=== PATIENT | female | born 1965 | race Caucasian/White ===

== ENCOUNTER 2018-07-13 11:43 | Day surgery (SDC) | payer MEDICAID ==
[2018-07-13] MEDS ORDERED: LIDOCAINE 2% MDV (20MG/ML) 20ML VIAL IV ONE (11:44)
[2018-07-13] MEDS ORDERED: MIDAZOLAM HCL 2MG/2ML VIAL IV ONE (11:44)
[2018-07-13] MEDS ORDERED: PROPOFOL 10 MG/ML VIAL IV ONE (11:44)
== END 2018-07-13 13:37 | disposition home or self-care (01) ==
LOC: HOP 11:43
PROVIDERS: ATTEND Internal Medicine Gastroenterology
DX: K52.9 Noninfective gastroenteritis and colitis, unspecified (principal); R63.4 Abnormal weight loss; K62.1 Rectal polyp; D17.79 Benign lipomatous neoplasm of other sites; I10 Essential (primary) hypertension; K21.9 Gastro-esophageal reflux disease without esophagitis

== ENCOUNTER 2019-07-27 20:29 | Emergency (ER) | payer MEDICAID ==
[2019-07-27] MEDS ORDERED: DIPHENHYDRAMINE HCL 25 MG CAPSULE PO ONE (20:50)
[2019-07-27] MEDS ORDERED: METHYLPREDNISOLONE PF 125MG/VIAL IM ONE (20:50)
--- NOTE | 2019-07-27 20:50 | Emergency Department Record ---
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 She has had a rash on her forearms on and off now for several weeks. She states the rash becomes itchy at night when she tries to go to sleep. She is UTD on her tetanus. She states she has hep C but it's "not active." She also has hypertension and is on norco 10 for chronic back pain. Patient denies shortness of breath, wheezing, dysphagia or swelling in her throat. She states she has an appointment with her PCP in about 2 weeks, but decided to get seen this weekend. Onset/Timin -: Month(s) Patient Tetanus UTD (within 5 yrs): Yes Location: Face, LUE, RUE Associated symptoms: Denies other symptoms Treatments Prior to Arrival: None - Related Data Previous Rx's Medication Instructions Recorded Prednisone [Prednisone 20Mg] 20 mg PO DAILY #20 tab 07/27/19 Allergies Allergy/AdvReac Type Severity Reaction Status Date / Time No Known Drug Allergies Allergy Verified 07/27/19 20:38 Travel Screening - Travel/Exposure Within Last 30 Days Have you traveled within the last 30 days?: No - Travel/Exposure Within Last Year Have you traveled outside the [place] in the last year?: No - Additonal Travel Details Have you been exposed to anyone with a communicable illness?: No - Travel Symptoms Symptom Screening: None Review of Systems Reviewed: No additional complaints except as noted below Constitutional: Reports: As per HPI. Denies: Chills, Fever, Malaise, Night sweats, Weakness, Weight change Eyes: Reports: As per HPI. Denies: Eye discharge, Eye pain, Photophobia, Vision change ENT: Reports: As per HPI. Denies: Congestion, Dental pain, Ear pain, Epistaxis, Hearing loss, Throat pain Respiratory: Reports: As per HPI. Denies: Cough, Dyspnea, Hemoptysis, Stridor, Wheezes Cardiovascular: Reports: As per HPI. Denies: Arrhythmia, Chest pain, Dyspnea on exertion, Edema, Murmurs, Orthopnea, Palpitations, Paroxysmal nocturnal dyspnea, Rheumatic Fever, Syncope Endocrine: Reports: As per HPI. Denies: Fatigue, Heat or cold intolerance, Polydipsia, Polyuria Gastrointestinal: Reports: As per HPI. Denies: Abdominal pain, Constipation, Diarrhea, Hematemesis, Hematochezia, Melena, Nausea, Vomiting Genitourinary: Reports: As per HPI. Denies: Abnormal menses, Discharge, Dyspareunia, Dysuria, Frequency, Hematuria, Incontinence, Retention, Urgency Musculoskeletal: Reports: As per HPI. Denies: Arthralgia, Back pain, Gout, Joint swelling, Myalgia, Neck pain Skin: Reports: As per HPI. Denies: Bruising, Change in color, Change in hair/nails, Lesions, Pruritus, Rash Neurological: Reports: As per HPI. Denies: Abnormal gait, Confusion, Headache, Numbness, Paresthesias, Seizure, Tingling, Tremors, Vertigo, Weakness Psychiatric: Reports: As per HPI. Denies: Anxiety, Auditory hallucinations, Depression, Homicidal thoughts, Suicidal thoughts, Visual hallucinations Hematological/Lymphatic: Reports: As per HPI. Denies: Anemia, Blood Clots, Easy bleeding, Easy bruising, Swollen glands Past Medical History - SOCIAL HISTORY Smoking Status: Current every day smoker Alcohol Use: None Drug Use: None - RESPIRATORY Hx Respiratory Disorders: No Hx Bronchitis: No (.) - CARDIOVASCULAR Hx Cardio Disorders: Yes Hx Hypertension: Yes - NEURO Hx Neuro Disorders: No - GI Hx GI Disorders: Yes Hx Abdominal Pain: Yes (some cramps with diarrhea) Hx Reflux: Yes Hx Hepatitis/Jaundice: Yes (HEP C ANTIBODIES) Hx Liver Disease: Yes Hx Wt Loss/Wt Gain: Yes (lost 15 lbs in last year) Hx of Polyps: Yes Comment:: diarrhea - Hx Genitourinary Disorders: Yes Hx Bladder Problem: Yes (sling) Comment:: tubal ligation - ENDOCRINE Hx Endocrine Disorders: No - MUSCULOSKELETAL Hx Musculoskeletal Disorders: Yes Hx Arthritis: Yes (hips/spine) - PSYCH Hx Psych Problems: No - HEMATOLOGY/ONCOLOGY Hx Hematology/Oncology Disorders: No Family Medical History Any Significant Family History?: Yes Family Hx Comment (NOT TO BE USED IN PLACE OF ITEMS BELOW): bothersx 2 -blood clots Hx Anxiety: Children Hx Cancer: Father, Brother/Sister, Grandparents *Cancer Comment: father-colon/prostate, sister-BREAST, grandfather-leukemia, gmother-ovarian Hx Dementia: Mother Hx Depression: Children Hx Diabetes: Grandparents Hx Heart Disease: Father, Mother Hx HTN: Father Hx Stroke: Mother, Brother/Sister Physical Exam - General General Appearance: Alert, Oriented x3, Cooperative, No acute distress - Head Head exam: Normal inspection - Eye Eye exam: Normal appearance, PERRL, EOMI. negative: Conjunctival injection, Scleral icterus Pupils: Normal accommodation - ENT ENT exam: Normal exam, Mucous membranes moist, Normal external ear exam, Normal orophraynx, TM's normal bilaterally Ear exam: Normal external inspection. negative: External canal tenderness Nasal Exam: Normal inspection. negative: Discharge, Sinus tenderness Mouth exam: Normal external inspection, Tongue normal. negative: Drooling, Muffled voice, Tongue elevation Teeth exam: Normal inspection. negative: Dental caries Throat exam: Normal inspection. negative: Tonsillar erythema, Tonsillomegaly, Tonsillar exudate - Neck Neck exam: Normal inspection, Full ROM. negative: Lymphadenopathy, Meningismus, Tenderness - Respiratory Respiratory exam: Normal lung sounds bilaterally. negative: Respiratory distress - Cardiovascular Cardiovascular Exam: Regular rate, Normal rhythm, Normal heart sounds - GI/Abdominal GI/Abdominal exam: Soft, Normal bowel sounds. negative: Tenderness - Rectal Rectal exam: Deferred - exam: Deferred - Extremities Extremities exam: Normal inspection, Full ROM, Normal capillary refill, Other (rash limited to forearms and one lesion on trunk). negative: Calf tenderness, Pedal edema, Tenderness - Back Back exam: Reports: Normal inspection, Full ROM. Denies: Muscle spasm, Rash noted, Tenderness - Neurological Neurological exam: Alert, CN II-XII intact, Normal gait, Oriented X3, Reflexes normal. negative: Motor sensory deficit - Psychiatric Psychiatric exam: Normal affect, Normal mood - Skin Skin exam: Dry, Intact, Normal color, Rash (eczematous pruritic rash with discrete scabbed spots where patient has been scratching. Locations: bilateral forearms, sparing hands and remainder of body. ), Warm Course Vital Signs 07/27/19 20:34 Temperature 98.9 F Pulse Rate [ 95 H Left] Respiratory 16 Rate Blood Pressure 144/87 [Left Arm] Pulse Ox 98 Disposition Disposition: Discharge Clinical Impression: Contact dermatitis and other eczema due to detergents Disposition: Home, Self-Care Condition: (1) Good Instructions: Acute Rash (ED) Additional Instructions: Steroid taper: Prednisone 20 mg tablets, 20 tablets. Take 3 for 3 days, 2 for 3 days, 1 for 3 days, 1/2 for 4 days and stop Hydrocortisone 10 cream to arms. Keep arms covered at work. Take the benadryl when you get home tonight and every 6-8 hours as needed for itching. May cause drowsiness. Follow up with [facility] PCP Dr. Judge in 2 weeks as previously arranged for recheck. Prescriptions: Prednisone [Prednisone 20Mg] 20 mg PO DAILY #20 tab Forms: Patient Portal Access Quality - Quality Measures Quality Measures: N/A - Blood Pressure Screening Does Patient Have Any of the Following: No Blood Pressure Classification: Pre-Hypertensive BP Reading Systolic Measurement: 144 Diastolic Measurement: 87 Screening for High Blood Pressure: Patient Exclusion, Hx of HTN [[id number]]
== END 2019-07-27 21:14 | disposition home or self-care (01) ==
LOC: ER 20:29
DX: L23.5 Allergic contact dermatitis due to other chemical products (principal); I10 Essential (primary) hypertension; F17.210 Nicotine dependence, cigarettes, uncomplicated
CPT/HCPCS: 96372; 99284; J2930